=== PATIENT | female | born 1995 | race Caucasian/White ===

== ENCOUNTER 2017-10-08 11:00 | Emergency (ER) | payer SELFPAY ==
[2017-10-08 11:23] VITALS: BP 145/87; PULSE 78; TEMP 98.2; BMI 22.2
[2017-10-08] MEDS ORDERED: AZITHROMYCIN 1 GM PACKET PO ONE (11:55)
[2017-10-08] MEDS ORDERED: AZITHROMYCIN 500 MG TABLET ONE (11:57)
--- NOTE | 2017-10-08 12:00 | PDOC ---
History of Present Illness - General Chief Complaint: Vaginal Sxs Stated Complaint: IRRITATION Time Seen by Provider: 10/08/17 11:33 History Source: Patient Exam Limitations: No Limitations - History of Present Illness Travel History: No Initial Comments: 10/08/17 11:56 22 yr female sexually active unprotected intercourse states one week vaginal discharge and irritation with lower pelvic pain. No fever no chills neg back pain neg vomiting. Pt requesting HIV testing. Timing/Duration: reports: constant Quality: reports: stabbing Abdominal Pain Onset Location: reports: periumbilical Past History - Past Medical History Allergies/Adverse Reactions: Allergies Allergy/AdvReac Type Severity Reaction Status Date / Time amoxicillin [Amoxicillin] Allergy Mild Hives Verified 10/08/17 11:23 Home Medications: Ambulatory Orders NK [No Known Home Medication] 10/08/17 Asthma: Yes COPD: No - Immunization History Immunization Up to Date: No - Suicide/Smoking/Psychosocial Hx Smoking Status: No Smoking History: Never smoked Number of Cigarettes Smoked Daily: 0 Hx Alcohol Use: Yes (SOCIAL) Drug/Substance Use Hx: No Abd/GI Specific PMHX - Complaint Specific PMHX Colitis: No Diverticulitis: No Gall Bladder Disease: No GERD: No Hepatitis: No Irritable Bowel Synd (IBS): No Pancreatitis: No GI Ulcer Disease: No Review of Systems - Review of Systems Able to Perform ROS?: Yes Is the patient limited Indonesian proficient: No Constitutional: No: Symptoms Reported HEENTM: No: Symptoms Reported Respiratory: No: Symptoms reported Cardiac (ROS): No: Symptoms Reported ABD/GI: No: Symptoms Reported : Yes: See HPI *Physical Exam - Vital Signs Last Vital Signs Temp Pulse Resp BP Pulse Ox 98.2 F 78 20 145/87 100 10/08/17 11:20 10/08/17 11:20 10/08/17 11:20 10/08/17 11:20 10/08/17 11:20 - Physical Exam General Appearance: Yes: Nourished, Appropriately Dressed HEENT: positive: EOMI, JORGE, Normal ENT Inspection Neck: positive: Supple Respiratory/Chest: positive: Lungs Clear, Normal Breath Sounds Cardiovascular: positive: Regular Rhythm, Regular Rate Female Pelvic Exam: positive: discharge (thick yellow white discharge, cervix without CMT however is erythematous , no bleeding ), adnexal tenderness. negative: CMT Gastrointestinal/Abdominal: positive: Normal Bowel Sounds, Tender (suprapubic tender on deep palpation), Soft Rectal Exam: positive: deferred Musculoskeletal: positive: Normal Inspection Extremity: positive: Normal Capillary Refill, Normal Inspection, Normal Range of Motion Integumentary: positive: Normal Color, Dry, Warm Neurologic: positive: assistant product manager II-XII NML intact, Fully Oriented, Alert, Normal Mood/ Affect ED Treatment Course - ADDITIONAL ORDERS Additional order review: Laboratory Results 10/08/17 11:37 Urine HCG, Qual Negative Medical Decision Making - Medical Decision Making 10/08/17 11:58 cc: vaginal discharge with dysuria pelvic pain no fever will check genital culture, Gc chlamydia, UA HIV and RPR will treat for exposure possible GC /chlamydia safe sex procedures discussed with pt who understands that condoms should be used every time during sexual activity *DC/Admit/Observation/Transfer Diagnosis at time of Disposition: Cervicitis - Discharge Dispostion Disposition: HOME Condition at time of disposition: Good - Referrals Referrals: Pam Haas MD [Staff Physician] - - Patient Instructions Additional Instructions: 10/08/17 1. As discussed, a screening test for the HIV virus was performed today. Your HIV test is Negative (normal). 2. As discussed, if you engaged in high risk-behavior in the three (3) months prior to this test, you could still potentially be at risk and you will need to be re-tested. 3. As discussed, avoid any high risk behavior (such as unprotected sex or needle-sharing) in the future to minimize the chances of apryl HIV. always use condoms during sexual activity apply vaseline and hydrocortisone cream to the outer area of vagina that is irritated, do not put any inside the vagina follow with the cannon crewmember listed below for follow up and yearly PAP smears avoid any sexual activity until symptoms are improved - Post Discharge Activity
[2017-10-08 12:45] LABS: HIV 1 & 2 AB NEGATIVE; HIV 1 AGp24 NEGATIVE
[2017-10-08 13:05] LABS: URINE APPEARANCE CLOUDY; URINE BILIRUBIN NEGATIVE (NEGATIVE); URINE BLOOD NEGATIVE (NEGATIVE); URINE COLOR YELLOW; URINE GLUCOSE (UA) NEGATIVE (NEGATIVE); URINE KETONE NEGATIVE (NEGATIVE); URINE NITRITE NEGATIVE (NEGATIVE); URINE PROTEIN NEGATIVE (NEGATIVE); URINE UROBILINOGEN NEGATIVE mg/dL (0.2-1.0)
[2017-10-08 14:16] LABS: URINE LEUK ESTERASE Negative (NEGATIVE)
== END 2017-10-08 13:11 | disposition home or self-care (01) ==
LOC: JERFT 11:00
DX: N72 Inflammatory disease of cervix uteri (principal)
CPT/HCPCS: 36415; 81003; 84703; 86593; 87070; 87077; 87205; 87389; 87491; 87591; 99281-25

== ENCOUNTER 2018-11-08 21:34 | Emergency (ER) | payer OTHER ==
[2018-11-08] MEDS ORDERED: ALBUTEROL SO4 2.5/IPRATROPIUM 0.5 INH SOL 3 ML VIAL.NEB. NEB ONE ×2 (21:53→22:04)
--- NOTE | 2018-11-08 21:53 | PDOC ---
Rapid Medical Evaluation Medical Evaluation: Allergies Allergy/AdvReac Type Severity Reaction Status Date / Time amoxicillin [Amoxicillin] Allergy Mild Hives Verified 10/08/17 11:23 I have performed a brief in-person evaluation of this patient. The patient presents with a chief complaint of: hx asthma (never intubated), anemia, nonsmoker presents with dry cough, sob chest tightness x 1 week. Sxs feel similar to her asthma. Has inhaler but prefers to use nebulizer; however, ran out of her nebulizer medication Pertinent physical exam findings: In NAD, lungs clear I have ordered the following: Duoneb The patient will proceed to the ED for further evaluation. 11/08/18 21:47
[2018-11-08 21:54] VITALS: BP 127/88; PULSE 99; TEMP 98.8; BMI 19.1
--- NOTE | 2018-11-08 22:13 | PDOC ---
History of Present Illness - General Chief Complaint: Cold Symptoms Stated Complaint: ASTHMA Time Seen by Provider: 11/08/18 22:00 History Source: Patient Exam Limitations: No Limitations - History of Present Illness Initial Comments: Patient is a 23-year-old female with a known history of asthma who states that she is out of her albuterol rescue. She states she has been out for the week. She's noticed increased wheezing over the past 24 hours. Denies fever. Denies chest pain or shortness of breath. Denies any relieving or relieving factors. 11/08/18 22:10 Past History - Travel Traveled outside of the country in the last 30 days: No Close contact w/someone who was outside of country & ill: No - Past Medical History Allergies/Adverse Reactions: Allergies Allergy/AdvReac Type Severity Reaction Status Date / Time amoxicillin [Amoxicillin] Allergy Mild Hives Verified 11/08/18 21:51 Home Medications: Ambulatory Orders Albuterol 0.083% Nebulizer Edita [Ventolin 0.083% Nebulizer Soln -] 1 neb NEB Q6H #1 box 11/08/18 Asthma: Yes COPD: No - Immunization History Immunization Up to Date: No - Suicide/Smoking/Psychosocial Hx Smoking Status: No Smoking History: Never smoked Have you smoked in the past 12 months: No Number of Cigarettes Smoked Daily: 0 Information on smoking cessation initiated: No Hx Alcohol Use: No Drug/Substance Use Hx: No Review of Systems - Review of Systems Able to Perform ROS?: Yes Constitutional: No: Chills, Fever Respiratory: Yes: Wheezing. No: Cough, Shortness of Breath, Productive cough All Other Systems: Reviewed and Negative *Physical Exam - Vital Signs Last Vital Signs Temp Pulse Resp BP Pulse Ox 98.8 F 99 H 20 127/88 100 11/08/18 21:51 11/08/18 21:51 11/08/18 21:51 11/08/18 21:51 11/08/18 21:51 - Physical Exam Comments: Constitutional: VS stated, pt appears in no apparent distress; sitting in chair. Able to speak in complete sentences without any short of breath. Skin: Warm and dry. Intact, no lesions or excoriations. Head: Normocephalic; atraumatic Eyes: conjunctiva pink without injection or discharge. Ears: No tenderness present. Canals without injection or discharge; TM clear, no retractions or bulging. Nose: Patent, mucosa pink. No drainage. Throat: Oropharynx with pink and moist mucosa. Chest: Normal AP diameter, symmetrical excursions bilaterally, no retractions or bulging of the intercostal spaces. No pain or tenderness noted on palpation. Lungs: Bilateral breath sounds mild expiratory wheezing. Heart: Regular rate and rhythm, Abdomen: Soft and non-tender. Musculoskeletal: Moves all extremities without difficulty. Neurologic: Awake, alert. Conversation fluent. 11/08/18 22:11 Moderate Sedation - Procedure Monitoring Vital Signs: Procedure Monitoring Vital Signs Temperature 98.8 F 11/08/18 21:51 Pulse Rate 99 H 11/08/18 21:51 Respiratory Rate 20 11/08/18 21:51 Blood Pressure 127/88 11/08/18 21:51 O2 Sat by Pulse Oximetry (%) 100 11/08/18 21:51 Medical Decision Making - Medical Decision Making 11/08/18 22:12 Pt was given a Duoneb ordered by JP REYNOSO. Pt's oxyge saturation is WNL. *DC/Admit/Observation/Transfer Diagnosis at time of Disposition: Asthma exacerbation Qualifiers: Asthma severity: mild Asthma persistence: intermittent Qualified Code(s): J45.21 - Mild intermittent asthma with (acute) exacerbation - Discharge Dispostion Disposition: HOME Condition at time of disposition: Stable Decision to Admit order: No - Prescriptions Prescriptions: Albuterol 0.083% Nebulizer Edita [Ventolin 0.083% Nebulizer Soln -] 1 neb NEB Q6H #1 box - Referrals - Patient Instructions Printed Discharge Instructions: DI for Asthma -- Adult - Post Discharge Activity
== END 2018-11-08 22:23 | disposition home or self-care (01) ==
LOC: JERFT 21:34
PROC: 3E0F7GC Introduction of Other Therapeutic Substance into Respiratory Tract, Via Natural or Artificial Opening (ICD-10-PCS; principal; 2018-11-08)
DX: J45.21 Mild intermittent asthma with (acute) exacerbation (principal)
CPT/HCPCS: 99281-25